=== PATIENT | male | born 1990 | race Caucasian/White ===

== ENCOUNTER 2016-08-24 07:58 | Emergency (ER) | payer OTHER ==
--- NOTE | 2016-08-24 09:14 | RAD ---
HISTORY: Fever, cough COMPARISONS: None VIEWS: 2: Frontal dual-energy and lateral views of the chest. FINDINGS: CARDIOMEDIASTINAL SILHOUETTE: The cardiomediastinal silhouette is normal. REMEDIOS: The remedios are normal. PLEURA: The costophrenic angles are sharp. No pleural abnormalities are noted. LUNG PARENCHYMA: The lungs are clear. ABDOMEN: The upper abdomen is clear. There is no subphrenic gas. BONES AND SOFT TISSUES: No bone or soft tissue abnormalities are noted. OTHER: None. IMPRESSION: NO ACTIVE CARDIOPULMONARY DISEASE.
[2016-08-24 10:22] VITALS: BP 125/67
--- NOTE | 2016-08-25 10:18 | ED ---
Chirag Hammer Matthew, scribed for Horacio Ramos MD on 08/24/16 at 0919 . Respiratory - HPI Summary HPI Summary: A 25 y/o male presents to the ED with difficulty breathing when he's lying flat. The patent's breathing improves when sitting up. Associated symptoms include fever - past 2 days, cough, chills, and diffuse body aches. The patient is a current everyday smoker. - History of Current Complaint Chief Complaint: EDUpperRespComplaint Stated Complaint: SHORT OF BREATH WHEN LAYING DOWN Time Seen by Provider: 08/24/16 08:27 Hx Obtained From: Patient Onset/Duration: Gradual Onset, Lasting Days, Still Present Timing: Constant Initial Severity: Moderate Current Severity: Moderate Pain Intensity: 5 Character: Cough (Nonproductive), Orthopnea Sputum Amount: None Associated Signs and Symptoms: Chills - Allergy/Home Medications Allergies/Adverse Reactions: Allergies Allergy/AdvReac Type Severity Reaction Status Date / Time No Known Allergies Allergy Verified 08/24/16 08:10 PMH/Surg Hx/FS Hx/Imm Hx Previously Healthy: Yes Endocrine/Hematology History: Denies: Hx Diabetes Infectious Disease History: No Infectious Disease History: Denies: Traveled Outside the [place] in Last 30 Days - Family History Family History: FHx of Lung CA. No FHx of COPD - Social History Alcohol Use: Rare Substance Use Type: Reports: None Smoking Status (MU): Current Every Day Smoker Type: Cigarettes Amount Used/How Often: 1/2 PPD Length of Time of Smoking/Using Tobacco: 4 years Have You Smoked in the Last Year: Yes Review of Systems Positive: Fever, Chills Eyes: Negative ENT: Negative Cardiovascular: Negative Respiratory: Other - Difficulty breathing lying down Positive: Cough Gastrointestinal: Negative Genitourinary: Negative Positive: Myalgia - diffuse body aches Skin: Negative Neurological: Negative Psychological: Normal All Other Systems Reviewed And Are Negative: Yes Physical Exam Triage Information Reviewed: Yes Vital Signs On Initial Exam: Initial Vitals Temp Pulse Resp BP Pulse Ox 98.8 F 113 20 134/83 98 08/24/16 08:10 08/24/16 08:10 08/24/16 08:10 08/24/16 08:10 08/24/16 08:10 Vital Signs Reviewed: Yes Appearance: Positive: Well-Appearing, No Pain Distress Skin: Positive: Warm, Dry Head/Face: Positive: Normal Head/Face Inspection Eyes: Positive: Normal ENT: Positive: Normal ENT inspection Neck: Positive: Supple, Nontender Respiratory/Lung Sounds: Positive: Breath Sounds Present, Other - minimal crackles in the left upper lung field Cardiovascular: Positive: Pulses are Symmetrical in both Upper and Lower Extremities, Tachycardia Abdomen Description: Positive: Nontender, Soft Bowel Sounds: Positive: Present Musculoskeletal: Positive: Normal, Strength/ROM Intact Neurological: Positive: Alert, Oriented to Person Place, Time Psychiatric: Positive: Affect/Mood Appropriate Diagnostics - Vital Signs Vital Signs Temp Pulse Resp BP Pulse Ox 08/24/16 08:10 98.8 F 113 20 134/83 98 - Laboratory Lab Statement: Any lab studies that have been ordered have been reviewed, and results considered in the medical decision making process. - Radiology CXR Xray Interpretation: No Acute Changes - IMPRESSION: NO ACTIVE CARDIOPULMONARY DISEASE. Radiology Interpretation Completed By: Radiologist Disposition - Course Assessment/Plan: A 25 y/o male presents to the ED with difficulty breathing when he's lying flat. The patent's breathing improves when sitting up. Associated symptoms include fever - past 2 days, cough, chills, and diffuse body aches. The patient is a current every day smoker. CXR showed no acute active cardiopulmonary disease. The patient will be discharged home on Biaxin and Robitussin to follow-up with his PCP. - Diagnoses Provider Diagnoses: Bronchitis Discharge - Discharge Plan Condition: Stable Disposition: HOME Prescriptions: Clarithromycin TAB* [Biaxin TAB*] 500 mg PO BID #20 tab guaiFENesin/CODIEN 100MG-10MG* [Robitussin AC 100Mg-10Mg*] 5 ml PO Q4H PRN #250 udc MDD 30 PRN Reason: Cough Patient Education Materials: Clarithromycin (By mouth), Dextromethorphan/ Guaifenesin/Phenylephrine (By mouth), Acute Bronchitis (ED) Referrals: [facility] [Outside] - 3 Days Additional Instructions: Please follow-up with your primary care physician in 3 days. The documentation as recorded by the Chirag schofield Matthew accurately reflects the service I personally performed and the decisions made by , Horacio Ramos MD.
== END 2016-08-24 10:21 | disposition home or self-care (01) ==
LOC: ED 07:58
DX: J40 Bronchitis, not specified as acute or chronic (principal); R06.02 Shortness of breath; R05 Cough; F17.210 Nicotine dependence, cigarettes, uncomplicated; R50.9 Fever, unspecified
CPT/HCPCS: 71020; 99282